=== PATIENT | female | born 2000 | race Native Hawaiian/Other Pacific Islander ===

== ENCOUNTER 2019-05-23 18:18 | Emergency (ER) | payer OTHER ==
[2019-05-23] MEDS ORDERED: ACETAMINOPHEN 325 MG TABLET PO ONE (18:55)
--- NOTE | 2019-05-23 19:00 | ER Document Report ---
ED Medical Screen (RME) - General Chief Complaint: Vag Bleeding, +preg <12wks Stated Complaint: VAGINAL BLEEDING Time Seen by Provider: 05/23/19 18:52 Mode of Arrival: Ambulatory Information source: Patient Notes: Patient presents complaining of lower pelvic pain and low back pain. Patient is currently 2 months . Patient denies any dysuria. Patient does report some light vaginal bleeding. I have greeted and performed a rapid initial assessment of this patient. A comprehensive ED assessment and evaluation of the patient, analysis of test results and completion of the medical decision making process will be conducted by additional ED providers. - Related Data Allergies/Adverse Reactions: Penicillins Allergy (Verified 05/23/19 18:52) Physical Exam - Vital signs Vitals: Temp Pulse Resp BP Pulse Ox 98.5 F 94 16 136/77 H 98 05/23/19 18:23 05/23/19 18:23 05/23/19 18:23 05/23/19 18:23 05/23/19 18:23 - Abdominal Tenderness: Tender - Lower pelvic tenderness Course - Vital Signs Vital signs: Temp Pulse Resp BP Pulse Ox 98.5 F 94 16 136/77 H 98 05/23/19 18:23 05/23/19 18:23 05/23/19 18:23 05/23/19 18:23 05/23/19 18:23
[2019-05-23 19:28] LABS: ABSOLUTE EOSINOPHILS # (AUTO) 0.1 10^3/uL (0.0-0.6); ABSOLUTE LYMPHOCYTES (AUTO) 1.9 10^3/uL (0.5-4.7); ABSOLUTE MONOCYTES (AUTO) 0.6 10^3/uL (0.1-1.4); ABSOLUTE NEUT (AUTO) 5.9 10^3/uL (1.7-8.2); BASOPHILS % (AUTO) 0.5 % (0-2); EOSINOPHILS % (AUTO) 1.7 % (0-6); HEMATOCRIT 41.5 % (36.0-47.0); HEMOGLOBIN 14.2 g/dL (12.0-15.5); LYMPHOCYTES % (AUTO) 21.8 % (13-45); MEAN CORPUSCULAR HEMOGLOBIN 29.9 pg (27.0-33.4); MEAN CORPUSCULAR HGB CONC 34.1 g/dL (32.0-36.0); MEAN CORPUSCULAR VOLUME 88 fl (80-97); MONOCYTES % (AUTO) 6.7 % (3-13); PLATELET COUNT 355 10^3/uL (150-450); RED BLOOD COUNT 4.74 10^6/uL (3.72-5.28); RED CELL DISTRIBUTION WIDTH 13.3 % (11.5-14.0); SEGMENTED NEUTROPHILS % (AUTO) 69.3 % (42-78); TOTAL CELLS COUNTED % (AUTO) 100 %; WHITE BLOOD COUNT 8.6 10^3/uL (4.0-10.5)
[2019-05-23 20:20] LABS: APPEARANCE,URINE SLIGHTLY-CLOUDY; BILIRUBIN,URINE NEGATIVE (NEGATIVE); COLOR,URINE YELLOW; GLUCOSE, URINE NEGATIVE (NEGATIVE); KETONES,URINE NEGATIVE (NEGATIVE); LEUKOCYTE ESTERASE,URINE NEGATIVE (NEGATIVE); NITRITE,URINE POSITIVE (NEGATIVE); PROTEIN,URINE NEGATIVE (NEGATIVE); URINE SPECIFIC GRAVITY 1.015; UROBILINOGEN,URINE NEGATIVE mg/dL (<2.0)
--- NOTE | 2019-05-23 20:49 | RADIOLOGY REPORT (SQ) ---
EXAM DESCRIPTION: Early obstetric ultrasound CLINICAL HISTORY: 18 years Female, pelvic pain. History of . Last menstrual period 04/05/2019. COMPARISON: None. FINDINGS: Examination performed with transvaginal approach. Normal-sized uterus. Mildly thickened endometrium in the region of the fundus up to 14 mm. No IUP is visualized. No suspicious myometrial abnormalities. Both ovaries demonstrate normal vascularity. There is a complex cystic structure within the right ovary measures 21 x 20 x 17 mm. There is no obvious free fluid. IMPRESSION: 1. No IUP seen. 2. Mildly complex cystic structure in the right ovary measures approximately 2 cm in diameter. 3. If beta-hCG levels are elevated, an ectopic cannot be excluded.
[2019-05-23 20:54] VITALS: BP 125/61
[2019-05-23] MEDS ORDERED: METOCLOPRAMIDE HCL ORAL SOLN 10 MG/10 ML UDCUP PO ONE (21:11)
[2019-05-23] MEDS ORDERED: METOCLOPRAMIDE HCL 10 MG TABLET PO ONE (21:11)
--- NOTE | 2019-05-23 21:14 | ER Document Report ---
ED GI/ - General Chief Complaint: Abdominal Pain Stated Complaint: VAGINAL BLEEDING Time Seen by Provider: 05/23/19 18:52 Mode of Arrival: Ambulatory Information source: Patient Notes: Patient is an otherwise healthy 18-year-old female G2, P0 presenting to the emergency department with chief complaint of light vaginal bleeding and lower abdominal pain in the setting of possible . Patient reports she thinks she has 8 weeks because her last period was on 04/10/2019. She states that she had a few episodes of sharp stabbing pain earlier which have now resolved. She reports her bleeding has also resolved. She does report having a miscarriage approximately 3 months ago. She denies any fevers or abnormal vaginal discharge. TRAVEL OUTSIDE OF THE [place] IN LAST 30 DAYS: Yes - Related Data Allergies/Adverse Reactions: Penicillins Allergy (Verified 05/23/19 18:52) Past Medical History - General Information source: Patient - Social History Smoking Status: Unknown if Ever Smoked Family History: Reviewed & Not Pertinent Patient has suicidal ideation: No Patient has homicidal ideation: No - Medical History Medical History: Negative Surgical Hx: Negative - Immunizations Immunizations up to date: Yes Review of Systems - Review of Systems Constitutional: No symptoms reported EENT: No symptoms reported Cardiovascular: No symptoms reported Respiratory: No symptoms reported Gastrointestinal: No symptoms reported Genitourinary: No symptoms reported Female Genitourinary: Vaginal bleeding Musculoskeletal: No symptoms reported Skin: No symptoms reported Hematologic/Lymphatic: No symptoms reported Neurological/Psychological: No symptoms reported Physical Exam - Vital signs Vitals: Temp Pulse Resp BP Pulse Ox 98.5 F 94 16 136/77 H 98 05/23/19 18:23 05/23/19 18:23 05/23/19 18:23 05/23/19 18:23 05/23/19 18:23 - Notes Notes: PHYSICAL EXAMINATION: GENERAL: Well-appearing, well-nourished and in no acute distress. HEAD: Atraumatic, normocephalic. EYES: Pupils equal round and reactive to light, extraocular movements intact, conjunctiva are normal. ENT: Nares patent, oropharynx clear without exudates. Moist mucous membranes. NECK: Normal range of motion, supple without lymphadenopathy LUNGS: Breath sounds clear to auscultation bilaterally and equal. No wheezes rales or rhonchi. HEART: Regular rate and rhythm without murmurs ABDOMEN: Soft, nontender, nondistended abdomen. No guarding, no rebound. No masses appreciated. Female : No CVA tenderness. Musculoskeletal: Normal range of motion, no pitting or edema. No cyanosis. NEUROLOGICAL: Cranial nerves grossly intact. Normal speech, normal gait. Normal sensory, motor exams PSYCH: Normal mood, normal affect. SKIN: Warm, Dry, normal turgor, no rashes or lesions noted. Course - Re-evaluation Re-evalutation: 05/23/19 21:16 Laboratory 05/23/19 05/23/19 05/23/19 19:05 19:14 19:14 WBC 8.6 RBC 4.74 Hgb 14.2 Hct 41.5 MCV 88 MCH 29.9 MCHC 34.1 RDW 13.3 Plt Count 355 Lymph % (Auto) 21.8 [place] % (Auto) 6.7 Eos % (Auto) 1.7 Baso % (Auto) 0.5 Absolute Neuts (auto) 5.9 Absolute Lymphs (auto) 1.9 Absolute Monos (auto) 0.6 Absolute Eos (auto) 0.1 Absolute Basos (auto) 0.0 Seg Neutrophils % 69.3 Beta HCG, Quant 287.28 H Total Beta HCG POSITIVE Urine Color YELLOW Urine Appearance SLIGHTLY-CLOUDY Urine pH 6.0 Ur Specific [place] 1.015 Urine Protein NEGATIVE Urine Glucose (UA) NEGATIVE Urine Ketones NEGATIVE Urine Blood NEGATIVE Urine Nitrite POSITIVE H Urine Bilirubin NEGATIVE Urine Urobilinogen NEGATIVE Ur Leukocyte Esterase NEGATIVE Urine WBC (Auto) 3 Urine RBC (Auto) 0 Urine Bacteria (Auto) TRACE Squamous Epi Cells Auto 1 Urine Mucus (Auto) RARE Urine Ascorbic Acid NEGATIVE Blood Type Rhogam Indicated 05/23/19 19:14 WBC RBC Hgb Hct MCV MCH MCHC RDW Plt Count Lymph % (Auto) [place] % (Auto) Eos % (Auto) Baso % (Auto) Absolute Neuts (auto) Absolute Lymphs (auto) Absolute Monos (auto) Absolute Eos (auto) Absolute Basos (auto) Seg Neutrophils % Beta HCG, Quant Total Beta HCG Urine Color Urine Appearance Urine pH Ur Specific [place] Urine Protein Urine Glucose (UA) Urine Ketones Urine Blood Urine Nitrite Urine Bilirubin Urine Urobilinogen Ur Leukocyte Esterase Urine WBC (Auto) Urine RBC (Auto) Urine Bacteria (Auto) Squamous Epi Cells Auto Urine Mucus (Auto) Urine Ascorbic Acid Blood Type O POSITIVE Rhogam Indicated RHOGAM NOT INDICATED Obstetrics Ultrasound 05/23/19 18:56 IMPRESSION: 1. No IUP seen. 2. Mildly complex cystic structure in the right ovary measures approximately 2 cm in diameter. 3. If beta-hCG levels are elevated, an ectopic cannot be excluded. Patient was medicated for nausea with Reglan here in the emergency department. Quantitative hCG is 287. There is a 2 cm cystic structure in the right ovary on ultrasound. This was discussed with patient. Patient's abdomen is soft and nontender. It is very important for her to return for repeat lab work and repeat ultrasound in 48 hours. All of this was discussed with patient and spouse. Patient verbalizes understanding and agreement with same. The patient's emergency department workup and current diagnosis were explained to the patient and or family. Follow-up instructions were provided. Medications if prescribed were discussed. Instructions for when to return to the emergency department including specific worrisome symptoms were discussed with the patient and/or family. - Vital Signs Vital signs: Temp Pulse Resp BP Pulse Ox 97.8 F 77 18 125/61 100 05/23/19 20:53 05/23/19 20:53 05/23/19 20:53 05/23/19 20:53 05/23/19 20:53 - Laboratory Result Diagrams: 05/23/19 19:14 Laboratory results interpreted by me: 05/23/19 05/23/19 19:05 19:14 Beta HCG, Quant 287.28 H Urine Nitrite POSITIVE H Discharge - Discharge Clinical Impression: Vaginal bleeding, Elevated serum human chorionic gonadotropin (hCG) level, Nausea Condition: Stable Disposition: HOME, SELF-CARE Additional Instructions: Ectopic Precaution An ultrasound was done and the was not seen in either the fallopian tubes or the uterus. It's possible you already had a miscarriage or that it's too early in your to see the fetus in the uterus. But the other possibility is that you have an ectopic (tubal) . Usually if an ectopic is too small to see, it's safe for you to go home. You should have a repeat quantitative HCG blood test. The level doubles every two days in normal pregnancies. If the level is falling rapidly, it means you've had a miscarriage. A repeat ultrasound in about a week may show the . If an ectopic is identified early, it can sometimes be treated without surgery. Return at once if you develop severe, sharp, and sudden pain in the lower abdomen, pain in the shoulder area, severe lightheadedness or fainting, or heavy bleeding (more than menstrual bleeding). Please return to the emergency department in 48 hours for repeat blood work and repeat ultrasound. Please return sooner if you develop worsening abdominal pain, heavy vaginal bleeding, bleeding through more than 1 pad per hour for 4 hours consecutively or any other concerning symptoms. I have also given you the number to [facility], if you are able to get an appointment with them in 48 hours it is okay to go there to have the repeat blood work and ultrasound as well. Prescriptions: Metoclopramide HCl [Reglan 10 mg Tablet] 1 tab PO ASDIR PRN #25 tablet PRN Reason: Referrals: EVERETT SAINZ MD [ACTIVE STAFF] - Follow up as needed
== END 2019-05-23 21:32 | disposition home or self-care (01) ==
LOC: ER 18:18
DX: O46.91 Antepartum hemorrhage, unspecified, first trimester (principal); O26.891 Other specified pregnancy related conditions, first trimester; R11.0 Nausea; R10.9 Unspecified abdominal pain; Z3A.08 8 weeks gestation of pregnancy; R10.30 Lower abdominal pain, unspecified
CPT/HCPCS: 36415; 76817; 81001; 84702; 85025; 86900; 86901; 99284